=== PATIENT | female | born 1950 | race Caucasian/White ===

== ENCOUNTER → 2016-10-11 | Outpatient (CLI) | payer OTHER, BC | LOC: ULTRA 01:06 → BC 01:06 | DX: N63 Unspecified lump in breast (principal) ==

== ENCOUNTER → 2016-10-25 | Outpatient (CLI) | payer OTHER, BC ==
--- NOTE | ~2016-10-25 | S ---
[facility] [place] [address] [address] [place] [address] SURGICAL PATH RPT PROCEDURE Name: SARAH ROSAS Room #: REG [facility].#: [id number] Admission: 10/25/16 Date of : 50 Discharge: Report #: [id number] Path Case #: [id number] PATHOLOGY REPORT COLLECTION DATE: 10/25/2016 RECEIVED DATE: 10/25/2016 SUBMITTING PHYS: RC Renae OTHER PHYS: SPECIMEN(S) RECEIVED: A.Rt breast nodule 12:00 * * * * * * * * * * * * FINAL DIAGNOSIS: Breast, right breast 12:00, 3 cm from nipple, needle core biopsy: - POORLY DIFFERENTIATED INVASIVE CARCINOMA WITH LOBULAR FEATURES, LM GRADE III, MEASURING 0.7 CM IN A SINGLE CORE IN CONTIGUOUS LENGTH. COMMENT: Specimen type: needle core biopsy Tumor site: 12:00. 3 cm from nipple Tumor quantitation: 7 mm Histologic type: invasive carcinoma Histologic grade: Sibley grade III Tubules, nuclei and mitoses: 3, 2, and 3, respectively LVSI: not identified Microcalcifications: not identified Markers: ER, [place], Ki-67, and HER-2/rachael Block: A1 Co-review: Dr. Ena Rothman. Findings are telephoned to Ms Chung at our breast center, in the morning of 10/26/2016. (IUV:csd; d/t: 10/26/2016) PATHOLOGIST: Jeaneth Pickett M.D. REPORT ELECTRONICALLY SIGNED BY: Jeaneth Pickett M.D. DATE/TIME: 10/26/2016 16:13 * * * * * * * * * * * * GROSS PATHOLOGY: Received in formalin labeled "Sarah Rosas, right breast biopsy 12:00, 3 cm from nipple," are multiple needle cores of yellow-bender fibrofatty tissue measuring 2.1 x 0.9 x 0.4 cm in aggregate dimensions. The tissue is submitted in its entirety in cassette A1. The cold ischemic time is less than 1 minute. The total formalin [facility] [address] [place] [address] SURGICAL PATH RPT PROCEDURE Name: SARAH ROSAS Room #: REG [facility]#: [id number] Admission: 10/25/16 Date of : 50 Discharge: Report #: [id number] Path Case #: [id number] fixation time is 10 hours and 41 minutes. (KAH; 10/25/2016) CLINICAL HISTORY: Right breast nodule INITIAL CPT CODE(S): A; 48033, 80877(4) Professional services performed by [facility] at [facility] [address] [place] [address] Technical services performed by [facility] at [address] [place] [address], [facility] [address] [address]. PROCEDURE REPORT (Order Date: 10/26/2016 00:00) INTERPRETATION: Quantitative image analysis was performed on block A1. Please see next page for scanned image of results. COMMENT: PATHOLOGIST: Jeaneth Pickett M.D. REPORT ELECTRONICALLY SIGNED BY: Jeaneth Pickett M.D. DATE/TIME: 10/30/2016 13:27 [facility] [address] [address] PHONE: [phone] DIRECTOR: Eldon Valenzuela M.D. * * * END OF REPORT * * *
== END | disposition home or self-care (01) ==
LOC: ULTRA 02:12
DX: C50.911 Malignant neoplasm of unspecified site of right female breast (principal)

== ENCOUNTER → 2019-08-20 | Outpatient (CLI) | payer OTHER, BC | LOC: RAD 10:52 | DX: Q25.46 Tortuous aortic arch (principal); M47.814 Spondylosis without myelopathy or radiculopathy, thoracic region; R60.0 Localized edema ==

== ENCOUNTER → 2020-02-13 | Outpatient (CLI) | payer OTHER, BC ==
[2020-02-13 11:41] LABS: ABSOLUTE NEUTROPHILS 4.5 thou/uL (1.4-8.2); BASOPHILS 0.9 % (0.0-2.0); EOSINOPHILS 0.8 % (0.0-3.0); HEMATOCRIT 42.9 % (37.0-47.0); HEMOGLOBIN 14.4 gm/dL (12.0-15.0); LYMPHOCYTES 22.4 % (24.0-44.0); MCH 31.4 pg (26.0-34.0); MCHC 33.6 g/dL (28.0-37.0); MCV 93.5 fL (80.0-100.0); MONOCYTES 6.6 % (1.0-8.0); PLATELET COUNT 329 thou/uL (150-400); POLYS 69.3 % (36.0-66.0); RBC 4.59 mil/uL (4.20-5.00); RDW 14.1 % (10.5-14.5); WBC 6.5 thou/uL (4.0-11.0)
[2020-02-13 11:53] LABS: ALBUMIN 3.8 g/dL (3.4-5.0); CALCIUM 9.7 mg/dL (8.5-10.1); CREATININE 0.7 mg/dL (0.6-1.0); POTASSIUM 4.1 mmol/L (3.5-5.1); TOTAL BILIRUBIN 0.4 mg/dL (0.2-1.0); TOTAL PROTEIN 7.5 g/dL (6.4-8.2)
== END ==
LOC: ULTRA 10:48
PROVIDERS: ATTEND Nurse Practitioner
DX: E04.2 Nontoxic multinodular goiter (principal)

== ENCOUNTER → 2021-05-12 | Outpatient (CLI) | payer OTHER, BC | LOC: MRI 13:03 | PROVIDERS: ATTEND Nurse Practitioner | DX: S83.242A Other tear of medial meniscus, current injury, left knee, initial encounter (principal); M17.12 Unilateral primary osteoarthritis, left knee; M25.562 Pain in left knee; X58.XXXA Exposure to other specified factors, initial encounter; Y93.89 Activity, other specified; Y92.89 Other specified places as the place of occurrence of the external cause; Y99.8 Other external cause status ==